=== PATIENT | female | born 1935 | race Caucasian/White ===

== ENCOUNTER 2017-07-18 11:48 | Emergency (ER) | payer MEDICARE, BC ==
--- NOTE | 2017-07-18 11:59 | Emergency Department Record ---
History of Present Illness - General Chief Complaint: Neck Injury/Pain Stated Complaint: STIFF NECK Time Seen by Provider: 07/18/17 11:56 Source: Patient Mode of Arrival: Ambulatory Limitations: No limitations - History of Present Illness Initial Comments: 82 yo female presents with swelling and pain under her left jaw to the neck. She had a tooth pulled one week ago. She developed increase in discomfort and swelling the last two days. Today she feels like the symptoms are worse on the left. She has pain with moving the neck to that side. No fever, no redness, no changes in speech, no dizziness, no headache, no shortness of breath. Her dentist saw her in [place] today. She indicated the dentist did not feel it was dental related. She is on antibiotics for the pulled tooth. MD Complaint: Neck pain Onset/Timin -: Minutes(s) Place: Other Severity: Mild Consistency: Intermittent Improves With: None Worsens With: Movement of neck Associated Symptoms: None Treatments Prior to Arrival: None - Related Data Home Medications Medication Instructions Recorded Confirmed Last Taken Clindamycin HCl [Clindamycin HCl] 150 mg PO ASDIR 07/18/17 07/18/17 Unknown Fluticasone/Salmeterol [Advair 1 puff IH DAILY 07/18/17 07/18/17 Unknown 250-50 Diskus] Losartan Potassium [Losartan 50 mg PO DAILY 07/18/17 07/18/17 Unknown Potassium] Previous Rx's Medication Instructions Recorded Prednisone [Prednisone 20Mg] 20 mg PO DAILY #3 tab 07/18/17 Allergies Allergy/AdvReac Type Severity Reaction Status Date / Time benzocaine Allergy Mild HIVES Unverified 08/25/15 11:05 Penicillins Allergy Mild SWELLING Unverified 08/25/15 11:05 OF THE FACE Sulfa (Sulfonamide Allergy Mild RASH Unverified 08/25/15 11:05 Antibiotics) sulfasalazine Allergy Mild RASH Unverified 08/25/15 11:05 Travel Screening - Travel/Exposure Within Last 30 Days Have you traveled within the last 30 days?: No Review of Systems Constitutional: Denies: Chills, Fever, Malaise, Weakness Eyes: Denies: Eye discharge, Eye pain, Photophobia, Vision change ENT: Reports: Dental pain. Denies: Congestion, Ear pain, Throat pain (no sore throat or pain with swalloing.) Respiratory: Denies: Cough, Dyspnea, Hemoptysis, Stridor, Wheezes Cardiovascular: Denies: Chest pain, Palpitations, Syncope Endocrine: Denies: Fatigue Gastrointestinal: Denies: Diarrhea, Melena, Nausea, Vomiting Genitourinary: Denies: Dysuria, Frequency, Urgency Musculoskeletal: Reports: As per HPI, Neck pain. Denies: Arthralgia, Back pain , Joint swelling, Myalgia Skin: Denies: Bruising, Change in color, Rash Neurological: Denies: Headache, Numbness, Tremors, Vertigo, Weakness Psychiatric: Denies: Anxiety Hematological/Lymphatic: Denies: Blood Clots, Easy bleeding, Easy bruising, Swollen glands Past Medical History - SOCIAL HISTORY Smoking Status: Former smoker - RESPIRATORY Hx Respiratory Disorders: Yes Hx Asthma: Yes Comment:: allergies - CARDIOVASCULAR Hx Cardio Disorders: Yes Hx Edema: Yes Hx Hypertension: Yes - NEURO Hx Neuro Disorders: No - GI Hx GI Disorders: Yes Hx of Polyps: Yes (colon cancer 1983) - Hx Genitourinary Disorders: No - ENDOCRINE Hx Endocrine Disorders: No - MUSCULOSKELETAL Hx Musculoskeletal Disorders: Yes Hx Arthritis: Yes - PSYCH Hx Psych Problems: No - HEMATOLOGY/ONCOLOGY Hx Hematology/Oncology Disorders: Yes Hx Cancer: Yes (colon in 1983) Hx Chemotherapy: No Hx Radiation Therapy: No Hx Blood Transfusions: Yes (1983) Hx Blood Transfusion Reaction: No Family Medical History Any Significant Family History?: Yes Hx Cancer: Mother, Brother/Sister *Cancer Comment: liver, lung, colon, renal Hx Diabetes: Grandparents Hx Heart Disease: Father, Mother, Brother/Sister Hx Stroke: Father Physical Exam - General General Appearance: Alert, Oriented x3, Cooperative, No acute distress Limitations: No limitations - Head Head exam: Atraumatic, Normocephalic, Normal inspection - Eye Eye exam: Normal appearance, PERRL. negative: Conjunctival injection, Periorbital swelling, Scleral icterus - ENT ENT exam: Normal exam, Mucous membranes moist, Normal orophraynx Ear exam: Normal external inspection Nasal Exam: Normal inspection. negative: Sinus tenderness Mouth exam: Tongue normal. negative: Drooling, Laceration, Muffled voice, Tongue elevation, Trismus Teeth exam: Normal inspection. negative: Dental tenderness #, Gingival enlargement (post extraction sight appears normal without pus or swelling) Throat exam: Other (Normal posterior throat on examination). negative: Tonsillar erythema, Tonsillomegaly, Tonsillar exudate, R peritonsillar mass, L peritonsillar mass - Neck Neck exam: Full ROM, Tenderness, Other (She has very good ROM, she has mild left submandibular tenderness and swelling, the neck is supple and soft). negative: Lymphadenopathy, Meningismus - Respiratory Respiratory exam: Normal lung sounds bilaterally. negative: Respiratory distress - Cardiovascular Cardiovascular Exam: Regular rate, Normal rhythm, Normal heart sounds - GI/Abdominal GI/Abdominal exam: Soft. negative: Tenderness - Rectal Rectal exam: Deferred - exam: Deferred - Extremities Extremities exam: Normal inspection - Back Back exam: Reports: Normal inspection, Full ROM. Denies: Muscle spasm, Rash noted, Tenderness - Neurological Neurological exam: Alert, CN II-XII intact, Normal gait, Oriented X3 - Psychiatric Psychiatric exam: Normal affect, Normal mood - Skin Skin exam: Dry, Intact, Normal color, Warm Course Vital Signs 07/18/17 11:55 Temperature 98.2 F Pulse Rate [ 84 Pulse Ox Probe] Respiratory 18 Rate Blood Pressure 127/88 [Left Arm] Pulse Ox 97 - Reevaluation(s) Reevaluation #1: The patient was seen and examined She is well appearing, clear speech, no apparent distress She has mild left submandibular swelling Given her symptoms labs and CT ordered 07/18/17 12:17 07/18/17 12:28 No acute changes on the CBC 07/18/17 13:02 No acute changes on the BMP Minimal increase in CRP at 1.2 07/18/17 13:51 The patient is doing very well and feels greatly improved after the Solumedrol The CT was reviewed and discussed with the radiologist. sinus disease noted. heterogeneity of the left peritonsillar area noted but no abscess. On examin the left tonsil is normal in appearance. She has not had any sore throat. The patient is doing very well. No acute findings on exam or CT to suggest a complication from the tooth extraction DC home with instructions for close follow up the ED and the dentist as needed. Medical Decision Making - Lab Data Result diagrams: 07/18/17 12:10 07/18/17 12:10 Disposition Disposition: Discharge Clinical Impression: Neck pain Disposition: Home, Self-Care Condition: (1) Good Instructions: Toothache (ED) Additional Instructions: Return to the ER in the next 1-2 days if you are not steadily improving Continue your antibiotics Take the Prednisone the next 3 days. Prescriptions: Prednisone [Prednisone 20Mg] 20 mg PO DAILY #3 tab Forms: Patient Portal Access Time of Disposition: 13:56 Quality - Quality Measures Quality Measures: N/A - Blood Pressure Screening Does Patient Have Any of the Following: No Blood Pressure Classification: Pre-Hypertensive BP Reading Systolic Measurement: 150 Diastolic Measurement: 82 Screening for High Blood Pressure: < Pre-Hypertensive BP, F/U Documented > [ [id number]] Pre-Hypertensive Follow-up Interventions: Referral to alternative/primary care provider.
[2017-07-18] MEDS: METHYLPREDNISOLONE PF 125MG/VIAL IVP ONE (12:14)
[2017-07-18 12:17] LABS: BASO % 1.2 % (0-6); GRAN % 62.6 % (47-80); HEMATOCRIT 37.6 % (35.0-47.0); HEMOGLOBIN 12.1 gm/dl (11.6-16.0); LYMPH % 20.2 % (16-45); MEAN CELL VOLUME 88.9 fl (81-97); MEAN CORPUSCULAR HEMOGLOBIN 28.6 pg (27-33); MEAN CORPUSCULAR HGB CONC 32.2 g/dl (32-36); MEAN PLATELET VOLUME 9.5 fl (7.4-10.4); PLATELET COUNT 404 K/uL (130-400); RED BLOOD COUNT 4.23 M/uL (3.80-5.40); RED CELL DISTRIBUTION WIDTH 14.2 % (11.5-14.5); WHITE BLOOD COUNT W/O DIFF 6.9 K/uL (4.2-12.2)
[2017-07-18 12:35] LABS: CREATININE 0.8 mg/dL (0.5-0.9); EST GLOMERULAR FILTRATION RATE > 60 mL/min; GLUCOSE,RANDOM 106 mg/dL (74-109)
[2017-07-18 12:50] LABS: C-REACTIVE PROTEIN 1.29 mg/dL (<0.5)
[2017-07-18 13:11] LABS: BLOOD UREA NITROGEN 21 mg/dL (8-23)
--- NOTE | 2017-07-19 08:39 | CT SCAN REPORT ---
EXAM: SOFT TISSUE NECK CT WITH CONTRAST HISTORY: LEFT SIDED NECK SWELLING, TOOTH PULLED A WEEK AGO WITH JAW SWELLING AND STIFF NECK. TECHNIQUE: Axial CT scan of the neck was performed following the intravenous administration of 80 ml of Omnipaque 300 as the IV contrast. Comparison: No prior neck CT with which to compare. FINDINGS: There is prominent membrane thickening in the ethmoids bilaterally as well as in the left maxillary sinus. The visualized frontal sinus demonstrates mild membrane thickening inferiorly particularly on the left. The sphenoid sinus appears essentially clear. The mastoids appear clear as do the middle ear cavities. No abnormal air collection seen in either orbit. There is a small nodule about 6 mm in size within the right lobe of the thyroid. This could be further assessed with a thyroid ultrasound if clinically desired. No definite parotid or submandibular gland mass identified. Some normal sized superior mediastinal and cervical nodes are seen with no definite cervical adenopathy identified. There is slight heterogeneity in the region of the tonsils with a slightly hypodense appearance on the left and clinical correlation as to the possibility of a peritonsillar abscess on the left is suggested. The epiglottis appears of normal size. No prevertebral soft tissue swelling is evident. Degenerative change at both TMJ's. The maxillary teeth are absent and several mandibular teeth are absent. IMPRESSION: 1. PROMINENT MEMBRANE THICKENING IN THE ETHMOIDS AND MODERATE MEMBRANE THICKENING IN THE LEFT MAXILLARY SINUS. 2. SLIGHT HETEROGENEITY IN THE LEFT TONSIL IN PARTICULAR AND CLINICAL CORRELATION TO THE POSSIBILITY OF A MILD PERITONSILLAR ABSCESS ON THE LEFT SUGGESTED. 3. MILDLY PROMINENT CERVICAL NODES BILATERALLY, BUT NO DEFINITE ADENOPATHY SEEN. 4. SMALL RIGHT LOBE THYROID NODULE ABOUT 6 MM IN SIZE. 5. SOME DEGENERATIVE CHANGE IN THE SPINE. JOB NUMBER: [id number] [facility]
== END 2017-07-18 14:10 | disposition home or self-care (01) ==
LOC: ER 11:48
DX: M54.2 Cervicalgia (principal); K08.409 Partial loss of teeth, unspecified cause, unspecified class; R22.0 Localized swelling, mass and lump, head; I10 Essential (primary) hypertension; F17.210 Nicotine dependence, cigarettes, uncomplicated
CPT/HCPCS: 99284 ×2; 96374; 85025; 86140; 80048; 70491; Q9967; J2930

== ENCOUNTER 2017-10-23 11:51 | Emergency (ER) | payer MEDICARE, BC ==
--- NOTE | 2017-10-23 12:31 | Emergency Department Record ---
History of Present Illness - General Chief complaint: ENT Stated complaint: SINUS PAIN Time Seen by Provider: 10/23/17 12:29 Source: Patient Mode of Arrival: Ambulatory Limitations: No limitations - History of Present Illness Initial comments: 82 yo female presents with discolored sinus drainage, cough that is productive. She initially developed nasal congestion and drainage about 2 to 2.5 weeks ago. The drainage has been discolored. She has developed a productive cough as well with some yellow sputum. No shortness of breath. No chest pain. No edema. No vomiting or diarrhea. No chills or body aches. She tried over the counter nasal sprays without help of her nasal congestion. She has not seen her PCP MD complaint: Other Onset/Timin -: Week(s) Quality: Aching Consistency: Constant Improves with: None Worsens with: None Associated Symptoms: Cough - Related Data Home Medications Medication Instructions Recorded Confirmed Last Taken Aspirin [Adult Aspirin Regimen] 81 mg PO DAILY 10/23/17 10/23/17 10/23/17 Calcium Carbonate [Calcium] 1 tab PO DAILY 10/23/17 10/23/17 10/23/17 Montelukast Sodium [Singulair] 10 mg PO QHS 10/23/17 10/23/17 10/22/17 Multivitamin [Multi-Vitamin Daily] 1 each PO DAILY 10/23/17 10/23/17 10/23/17 Previous Rx's Medication Instructions Recorded Beclomethasone Dipropionate 1 spray NS BID #1 each 10/23/17 [Beconase Aq] Doxycycline Hyclate [Doxycycline] 100 mg PO DAILY #20 cap 10/23/17 Allergies Allergy/AdvReac Type Severity Reaction Status Date / Time benzocaine Allergy Mild HIVES Verified 10/23/17 12:26 Penicillins Allergy Mild SWELLING Verified 10/23/17 12:26 OF THE FACE Sulfa (Sulfonamide Allergy Mild RASH Verified 10/23/17 12:26 Antibiotics) sulfasalazine Allergy Mild RASH Verified 10/23/17 12:26 Travel Screening - Travel/Exposure Within Last 30 Days Have you traveled within the last 30 days?: No - Travel/Exposure Within Last Year Have you traveled outside the [place] in the last year?: No - Additonal Travel Details Have you been exposed to anyone with a communicable illness?: No - Travel Symptoms Symptom Screening: None Review of Systems Constitutional: Denies: Chills, Fever, Malaise, Night sweats, Weakness Eyes: Denies: Eye discharge, Eye pain, Photophobia, Vision change ENT: Reports: Congestion. Denies: Dental pain, Ear pain, Epistaxis, Throat pain Respiratory: Reports: Cough. Denies: Dyspnea, Hemoptysis, Stridor, Wheezes Cardiovascular: Denies: Chest pain, Palpitations, Syncope Endocrine: Denies: Fatigue, Polydipsia, Polyuria Gastrointestinal: Denies: Abdominal pain, Diarrhea, Nausea, Vomiting Genitourinary: Denies: Dysuria, Urgency Musculoskeletal: Denies: Arthralgia, Back pain, Joint swelling, Myalgia, Neck pain Skin: Denies: Bruising, Change in color, Rash Neurological: Denies: Abnormal gait, Confusion, Headache, Numbness, Seizure, Tingling, Tremors, Vertigo, Weakness Psychiatric: Denies: Anxiety Hematological/Lymphatic: Denies: Blood Clots, Easy bleeding, Easy bruising, Swollen glands Past Medical History - SOCIAL HISTORY Smoking Status: Former smoker Alcohol Use: None Drug Use: None - RESPIRATORY Hx Respiratory Disorders: Yes Hx Asthma: Yes Comment:: allergies - CARDIOVASCULAR Hx Cardio Disorders: Yes Hx Edema: Yes Hx Hypertension: Yes - NEURO Hx Neuro Disorders: No - GI Hx GI Disorders: Yes Hx of Polyps: Yes (colon cancer 1983) - Hx Genitourinary Disorders: No - ENDOCRINE Hx Endocrine Disorders: No - MUSCULOSKELETAL Hx Musculoskeletal Disorders: Yes Hx Arthritis: Yes - PSYCH Hx Psych Problems: No - HEMATOLOGY/ONCOLOGY Hx Hematology/Oncology Disorders: Yes Hx Cancer: Yes (colon in 1983) Hx Chemotherapy: No Hx Radiation Therapy: No Hx Blood Transfusions: Yes (1983) Hx Blood Transfusion Reaction: No Family Medical History Any Significant Family History?: No Hx Cancer: Mother, Brother/Sister *Cancer Comment: liver, lung, colon, renal Hx Diabetes: Grandparents Hx Heart Disease: Father, Mother, Brother/Sister Hx Stroke: Father Physical Exam - General General Appearance: Alert, Oriented x3, Cooperative, No acute distress Limitations: No limitations - Head Head exam: Normal inspection - Eye Eye exam: Normal appearance, PERRL. negative: Conjunctival injection, Scleral icterus - ENT ENT exam: Mucous membranes moist, Normal orophraynx, TM's normal bilaterally. negative: Normal exam, Mucous membranes dry Ear exam: Normal external inspection. negative: Auricular hematoma, Auricular trauma, External canal tenderness Nasal Exam: Discharge (yellowish with nasal mucosal edema), Sinus tenderness ( maxillary). negative: Active bleeding, Dried blood Mouth exam: Normal external inspection Teeth exam: Normal inspection. negative: Dental caries Throat exam: Normal inspection. negative: Tonsillar erythema, Tonsillar exudate - Neck Neck exam: Normal inspection, Full ROM. negative: Lymphadenopathy, Tenderness - Respiratory Respiratory exam: Normal lung sounds bilaterally. negative: Respiratory distress - Cardiovascular Cardiovascular Exam: Regular rate, Normal rhythm, Normal heart sounds Peripheral Pulses: 2+: Radial (R), Radial (L) - GI/Abdominal GI/Abdominal exam: negative: Soft, Tenderness - Rectal Rectal exam: Deferred - exam: Deferred - Extremities Extremities exam: Normal inspection, Full ROM, Normal capillary refill. negative: Pedal edema, Tenderness - Back Back exam: Reports: Normal inspection, Full ROM. Denies: CVA tenderness (R), CVA tenderness (L), Muscle spasm, Rash noted, Tenderness - Neurological Neurological exam: Alert, Normal gait, Oriented X3 - Psychiatric Psychiatric exam: Normal affect, Normal mood - Skin Skin exam: Dry, Intact, Normal color, Warm Course Vital Signs 10/23/17 12:16 Temperature 98.2 F Pulse Rate 90 Respiratory 18 Rate Blood Pressure 185/99 Pulse Ox 98 - Reevaluation(s) Reevaluation #1: 10/23/17 12:40 Vitals reviewed She was made aware of need for BP recheck She clinically has sinusitis with nearly 3 weeks of symptoms Disposition Disposition: Discharge Clinical Impression: Sinusitis Qualifiers: Sinusitis location: maxillary Chronicity: acute Recurrence: not specified as recurrent Qualified Code(s): J01.00 - Acute maxillary sinusitis, unspecified Disposition: Home, Self-Care Condition: (1) Good Instructions: Sinusitis (ED) Additional Instructions: Call to follow up with your new doctor this week Return if worse or any new concerns such as short of breath, fever, vomiting. Prescriptions: Beclomethasone Dipropionate [Beconase Aq] 1 spray NS BID #1 each Doxycycline Hyclate [Doxycycline] 100 mg PO DAILY #20 cap Forms: Patient Portal Access Time of Disposition: 12:42 Quality - Quality Measures Quality Measures: N/A, Adult Sinusitis - Adult Sinusitis: CT Use Quality Measure: Measure #333: Adult Sinusitis Adult Sinusitis: CT for Acute Sinusitis: < CT NOT ordered or received within 28 Days > [A3990] Reason for Ordering CT: Symptoms At Least 7 to 10 Days, Acute Sphenoid Sinusitis - Blood Pressure Screening Does Patient Have Any of the Following: Active Dx of HTN Blood Pressure Classification: Hypertensive Reading Systolic Measurement: 163 Diastolic Measurement: 92 Screening for High Blood Pressure: Patient Exclusion, Hx of HTN [G0610]
== END 2017-10-23 12:56 | disposition home or self-care (01) ==
LOC: ER 11:51
DX: J01.00 Acute maxillary sinusitis, unspecified (principal); I10 Essential (primary) hypertension; F17.210 Nicotine dependence, cigarettes, uncomplicated
CPT/HCPCS: 99282

== ENCOUNTER 2018-12-03 07:56 | Day surgery (SDC) | payer MEDICARE, BC ==
[2018-12-03] MEDS ORDERED: LIDOCAINE 2% MDV (20MG/ML) 20ML VIAL IV ONE (07:57)
[2018-12-03] MEDS ORDERED: PROPOFOL 10 MG/ML VIAL IV ONE (07:57)
--- NOTE | 2018-12-04 08:50 | Operative Note ---
DATE OF SURGERY: 12/03/2018 OPERATION: COLONOSCOPY to the cecum with cold snare polypectomy x4. INDICATION: Prior history of colon cancer with previous sigmoid resection. The patient returns at this time for surveillance. She has previously had multiple polyps removed endoscopically as well. ANESTHESIA: Intravenous sedation was administered by the department of anesthesiology and included Diprivan titrated to effect. PROCEDURE: Following informed consent from this alert individual including a discussion of the risks and benefits of the procedure and an opportunity for the patient to ask questions, the patient was in the left lateral decubitus position. A digital rectal examination was performed. No abnormalities were noted. Following this, the Olympus [id number] video colonoscope was inserted into the rectum without resistance. The rectal mucosa had a normal appearance with normal folds and distensibility. In the proximal rectum, there was an anastomosis noted which appeared healthy and patent. The remaining left colon was cannulated and found to have extensive diverticulosis. Diverticulosis extended into the right colon as well. The cecum was defined by noting the appendiceal orifice and ileocecal valve. Colon preparation overall was fair to good. There was some retained solid stool noted most of which could be pushed away. From the base of the cecum, the colonoscope was then withdrawn. In the transverse colon, there were 2 polyps noted measuring 5-6 mm in size each removed with cold snare polypectomy. There were 2 additional polyps noted in the descending colon also measuring 5-7 mm in size again removed with cold snare polypectomy and suctioned through the endoscope into a trap. Again, diverticulosis was quite apparent, particularly in the remaining left colon. Retroflexion in the rectum was endoscopically normal. The instrument was straightened and withdrawn. The patient tolerated the procedure well and was returned to the recovery area in stable condition. IMPRESSION: 1. [id number] prep as described above. 2. Previous sigmoid colon resection with patent healthy anastomosis. 3. [place] diverticulosis. 4. Two polyps measuring 5-6 mm in size removed from the transverse colon and 2 additional polyps measuring 5-7 mm in size removed from the descending colon with cold snare polypectomy. RECOMMENDATIONS: Further recommendations forthcoming pending results of pathology. The patient will be following up with Dr. Faulkner as well. As always, thank you for allowing me to participate in the care of your patient. CC: MD ROBERT Long
== END 2018-12-03 09:50 | disposition home or self-care (01) ==
LOC: HOP 07:56
PROVIDERS: ATTEND Internal Medicine Gastroenterology
DX: Z12.11 Encounter for screening for malignant neoplasm of colon (principal); Z85.038 Personal history of other malignant neoplasm of large intestine; Z86.010 Personal history of colon polyps; Z90.49 Acquired absence of other specified parts of digestive tract; D12.3 Benign neoplasm of transverse colon; K63.5 Polyp of colon; I10 Essential (primary) hypertension